=== PATIENT | female | born 1985 | race Caucasian/White ===

== ENCOUNTER 2022-07-22 11:00 | Outpatient (RCR) | payer OTHER, SELFPAY ==
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
--- NOTE | 2022-07-22 11:54 | PTOPDC ---
Assessment and note entered by Barbara Bernabe, PT Evaluation Information Assessment Status Discharge Diagnosis low back pain Onset January 2022 Subjective Information Kiersten reports: back pain number is the same, sharp pains are not as much; getting stronger and more active; R knee and ankle giving her pain and limited her mobility; doing all the exercises at home OK; wants to continue to do the exercises at home, on her own; has appointments for ortho and pain management drs; want to have them look at her R knee next, it is really bothering her; Reported Pain Level Pain Score Self Report Additional Pain Score Comments pain range of 4/10, R and L lumbar pain; staying all the time; continuous dull ache, periodic sharp pains; tender to touch; reported walking tolerance 20 minutes, 5 minutes standing; decrease pain by flexing trunk, heating pad, take muscle relaxer for sleeping; Oswestry self assessment functional score of 46% limitation in activity level; Assessment PT Clinical Summary Kiersten has received 12 PT sessions, for back pain. Compared to the initial evaluation: decreased pain rating at the worst rating from 8/10 to 4/10, with low rating same at 4/10; self assessment score, with Oswestry is 6% worse; reported walking and standing tolerances are the same; improved trunk and hip strength; increased mobility without pain with standing trunk rotation R and L and supine R hip IR and ER and L hip ER motions; education completed for home exercises and posture. The goals were partially achieved. Discharge PT services. She is to continue with her exercises at home. Plan of Care PT Services Indicated No
== END 2022-07-22 15:11 | disposition home or self-care (01) ==
LOC: ANHPT 11:00
PROVIDERS: PCP Nurse Practitioner Family; Visit Provider Nurse Practitioner Family
DX: M54.50 Low back pain, unspecified (principal)
CPT/HCPCS: 97014; 97110; 97112; 97140; 97161; 97530; G0283

== ENCOUNTER 2023-02-17 11:40 | Emergency (ER) | payer OTHER, SELFPAY ==
--- NOTE | ~2023-02-17 | US_ITS ---
EXAMINATION: US pelvic complete w TV DATE: 02/17/2023 16:30 INDICATION: Adnexal mass TECHNIQUE: Multiple transabdominal and endovaginal sonographic images of the pelvis were obtained. COMPARISON: CT dated 02/17/2023 FINDINGS: The uterus measures 7.6 x 3.0 x 4.9 cm. Nabothian cysts at the cervix. The endometrial complex measur es 8 mm in thickness. Linear shadowing IUD seen within the endometrial canal. The left ovary measures 2.6 x 1.8 x 1.8 cm. The right ovary measures 4.8 x 2.9 x 3.3 cm. Within the right ovary is a 3.4 x 2 .9 x 3.1 cm complex cystic lesion proximal half of which demonstrates anechoic fluid with cystitis. S ubtle thin internal septation and more hypoechoic region also with a few thin internal echogenic sept ations. Vascular flow seen on color Doppler both ovaries but no evident internal vascular flow within the hypoechoic region of the complex cystic lesion to suggest vascularized soft tissue. There is a m inimal amount of likely physiologic free fluid in the pelvis. IMPRESSION: 1. 3.4 cm complex cystic lesion in the right ovary without evident internal flow on color Doppler. Ap pearance favors a hemorrhagic cyst and would recommend 6-12 week follow-up pelvic ultrasound to docum ent resolution. 2. IUD in expected position within the endometrial canal. Reviewed, dictated and finalized at location A. IMPRESSION: 1. 3.4 cm complex cystic lesion in the right ovary without evident internal joseph w on color Doppler. Appearance favors a hemorrhagic cyst and would recommend 6- 12 week follow-up pelvic ultrasound to document resolution. 2. IUD in expected position within the endometrial canal.
--- NOTE | ~2023-02-17 | CT_ITS ---
EXAMINATION: CT abdomen pelvis wo con DATE: 02/17/2023 15:36 INDICATION: Flank pain. Nausea and vomiting. TECHNIQUE: Computed tomography (CT) of the abdomen and pelvis was performed without intravenous contr ast. The dose-length product was 1338.11 mGy-cm. Automated exposure control and iterative reconstruct ion technique were employed. COMPARISON: 07/24/2016 FINDINGS: Heart size normal. No significant pleural or pericardial effusion. There are small nonobstr ucting bilateral renal stones measuring 3 mm or less. No hydronephrosis. No ureteral stones. Bladder is decompressed. There is an IUD in the uterus. The liver, spleen, pancreas, adrenal glands are unremarkable. Small fat-containing umbilical hernia. No abnormal there is a small low-density 3.9 cm right ovarian mass, likely complicated cysts. Recomme nd correlation with ultrasound. IMPRESSION: 1. Intermediate density 3.9 cm right ovarian mass. Consider correlation with pelvic ultrasound. 2: Nonobstructing bilateral nephrolithiasis. Reviewed, dictated and finalized at location B. IMPRESSION: 1. Intermediate density 3.9 cm right ovarian mass. Consider correlation with pe lvic ultrasound. 2: Nonobstructing bilateral nephrolithiasis.
[2023-02-17 12:14] VITALS: BP 152/99; PULSE 103; RESP 18; TEMP 36.4; O2SAT 97
[2023-02-17 12:57] LABS: Basophils Absolute Auto 0.1 K/mm3 (0.0-0.1); Basophils Percent Auto 0.5 % (0.2-1.2); Eosinophils Absolute Auto 0.4 K/mm3 (0-0.3); Eosinophils Percent Auto 2.2 % (0-4.4); Hematocrit 48.5 % (37.0-47.0); Hemoglobin 16.2 g/dL (12.0-15.0); Immature Granulocyte Percent A 0.6 % (0-0.5); Lymphocytes Absolute Auto 4.02 K/mm3 (0.9-3.2); Lymphocytes Percent Auto 25.3 % (18.3-44.2); Mean Corpuscular HGB Conc 33.4 g/dl (32-36); Mean Corpuscular Hemoglobin 30.6 pg (26-34); Mean Corpuscular Volume 91.5 fl (80-100); Mean Platelet Volume 9.3 fl (7.4-10.4); Monocytes Absolute Auto 0.7 K/mm3 (0.1-0.6); Monocytes Percent Auto 4.2 % (2.6-8.5); Neutrophils Absolute Auto 10.6 K/mm3 (1.3-6.7); Neutrophils Percent Auto 67.2 % (45.5-73.1); Platelet Count Result 320 k/mm3 (150-375); White Blood Count 15.9 K/mm3 (4.5-10.0)
[2023-02-17 13:11] LABS: Alanine Aminotransferase 24 U/L (6-35); Albumin Level 4.7 g/dL (3.5-5.1); Alkaline Phosphatase 63 U/L (38-126); Anion Gap 9 mmol/L (8-16); Aspartate Amino Transferase 23 U/L (14-36); Bilirubin,Total 0.4 mg/dL (0.2-1.3); Blood Urea Nitrogen 13 mg/dL (7-17); Calcium 9.6 mg/dL (8.4-10.2); Carbon Dioxide 25 mmol/L (22-30); Chloride 106 mmol/L (98-107); Estimated CRCL calculation 113 ml/min; Estimated Glomerular Filt Rate > 60; Glucose 100 mg/dL (65-110); Lipase 913 U/L (23-300); Potassium 4.2 mmol/L (3.4-5.0); Sodium 140 mmol/L (137-145)
[2023-02-17 13:15] LABS: Appearance Urine Cloudy (Clear); Bacteria Urine Rare /hpf; Bilirubin Urine Negative (Negative); Color Urine Yellow (Yellow); Glucose Urine UA Negative (Negative); Ketones Urine Negative (Negative); Leukocyte Esterase Ur Negative LEU/UL (Negative); Nitrate Urine Negative (Negative); Non Pathogenic Casts 0-2; Protein Urine Negative (Negative); Specific Grav Ur 1.019 (1.001-1.035); Squamous Epithelial Cell Urine Occasional /hpf (Few); Urobilinogen Urine 0.2 mg/dL (<2.0); WBC Urine 0-5 /hpf
[2023-02-17 13:30] LABS: Add Urine Microscopic? YES
[2023-02-17 16:01] VITALS: BP 133/80; O2SAT 98
[2023-02-17] MEDS: SODIUM CHLORIDE 0.9% IV 1,000 ML 999 ML IV CONT (16:52)
[2023-02-17] MEDS: MORPHINE SULFATE (*CRX) 4 MG/ML INJ IV PUSH (16:52)
[2023-02-17] MEDS: ONDANSETRON INJ 4 MG/2 ML VIAL IV PUSH (16:52)
--- NOTE | 2023-02-17 17:38 | ED.GENADULT ---
HPI - General Adult General Chief complaint: Abdominal Pain Stated complaint: abd/ back pain Time Seen by Provider: 02/17/23 14:51 History of Present Illness HPI narrative: Patient is a 38-year-old female who presents ER with abdominal pain. Had some epigastric discomfort yesterday but now has some pain in her right lower quadrant that radiates to her low back. Has history of kidney stones and is concerned she may be passing 1. She has some nausea when she eats but no pain with eating or drinking. No fevers chills or sweats. No chest pain or chest pressure. Cannot describe any alleviating factors. Related Data Allergies Allergy/AdvReac Type Severity Reaction Status Date / Time fluoxetine Allergy Unknown Verified 10/04/15 08:56 lorazepam Allergy Unknown Verified 10/04/15 08:55 vilazodone Allergy Unknown Verified 10/04/15 08:56 No Known Allergies Allergy Verified 07/24/16 06:43 [facility] Past Medical History Medical History (Updated 02/17/23 @ 19:10 by Tacos Burkett MD) Carpal tunnel syndrome Fibromyalgia GERD (gastroesophageal reflux disease) Kidney stones Surgical History Surgical History (Updated 02/17/23 @ 19:10 by Tacos Burkett MD) History of section Family History Family History (Updated 10/04/15 @ 09:00 by DOCTOR UNKNOWN) Father Hypertension Other Family history of malignant neoplasm of breast Social History Social History Smoking status: Current every day smoker Alcohol intake: never Exam Narrative: GENERAL: Well-appearing, well-nourished, and in no acute distress. HEAD: Normocephalic, atraumatic. ENT: Mucous membranes moist. NECK: Supple. CHEST: Clear to auscultation. No respiratory distress. HEART: Regular rate and rhythm. Normal peripheral pulses. ABDOMEN: Soft, mild right lower quadrant discomfort without guarding, nondistended. Back: No reproducible midline or paraspinal muscular tenderness of the T/L-spine. EXTREMITIES: Normal range of motion. No edema. SKIN: Warm, dry, no rash. NEURO: Alert and oriented x3. PSYCH: Normal mood and affect. Course Course Emergency Course: Patient with nonspecific elevation white blood cell count. Lipase also elevated but patient has no epigastric tenderness or pain. She had no discomfort with eating or drinking just some nausea. CT did not show any pancreatitis. Patient did have some blood in her urine. Possible she could have passed a kidney stone but it is felt patient's discomfort is most likely related to the ovarian cyst in the right adnexa that there may have been some rupture. She needs to follow-up with gynecology and she is verbalized understanding of this. Vital Signs Vital signs: Vital Signs Temperature 97.6 F 02/17/23 12:14 Pulse Rate 103 H 02/17/23 12:14 Respiratory Rate 18 02/17/23 12:14 Blood Pressure 152/99 H 02/17/23 12:14 Pulse Oximetry 97 02/17/23 12:14 Oxygen Delivery Room Air 02/17/23 12:14 Temperature 97.6 F 02/17/23 12:14 Pulse Rate 103 H 02/17/23 12:14 Respiratory Rate 18 02/17/23 12:14 Blood Pressure 133/80 02/17/23 16:01 Pulse Oximetry 98 02/17/23 16:01 Oxygen Delivery Room Air 02/17/23 12:14 Medical Decision Making Vital Signs Vital Signs: Vital Signs Temperature 97.6 F 02/17/23 12:14 Pulse Rate 103 H 02/17/23 12:14 Respiratory Rate 18 02/17/23 12:14 Blood Pressure 152/99 H 02/17/23 12:14 Pulse Oximetry 97 02/17/23 12:14 Oxygen Delivery Room Air 02/17/23 12:14 Temperature 97.6 F 02/17/23 12:14 Pulse Rate 103 H 02/17/23 12:14 Respiratory Rate 18 02/17/23 12:14 Blood Pressure 133/80 02/17/23 16:01 Pulse Oximetry 98 02/17/23 16:01 Oxygen Delivery Room Air 02/17/23 12:14 Lab Data 02/17/23 12:30 02/17/23 12:30 Labs: Lab Results 02/17/23 02/17/23 Range/Units 12:30 12:52 WBC 15.9 H (4.5-10.0) K/mm3 RBC 5.30 (4.2-5.4) M/mm3 Hgb 16.2 H (
== END 2023-02-17 17:39 | disposition home or self-care (01) ==
PROVIDERS: Emergency Provider Emergency Medicine; PCP Nurse Practitioner Family
DX: N83.201 Unspecified ovarian cyst, right side (principal); Z97.5 Presence of (intrauterine) contraceptive device; M79.7 Fibromyalgia; K21.9 Gastro-esophageal reflux disease without esophagitis; Z87.442 Personal history of urinary calculi
CPT/HCPCS: 36415; 74176; 76830; 76856; 80053; 81001; 81025; 83690; 85025; 96361; 96374; 96375; 99284; J2270; J2405; J7030

== ENCOUNTER 2023-03-18 01:15 | Day surgery (SDC) | payer OTHER, SELFPAY ==
[2023-03-07 15:11] VITALS: BMI 38.2
[2023-03-18 10:05] VITALS: BP 124/86; PULSE 86; RESP 18; TEMP 36.2; O2SAT 99; BMI 38.6
[2023-03-18] MEDS: LACTATED RINGERS 1,000 ML 150 ML IV CONT (10:09)
--- NOTE | 2023-03-18 10:25 | P.PNAN_ITS ---
Anes - Initial Pre Proc Eval Procedure: Operation Date: 03/18/23 11:15 Proposed Procedures p Esophagogastroduodenoscopy - Francisco Pickett MD Date/Time: 03/18/23 10:25 Surgeon: Francisco Pickett MD Pre Op Diagnosis: nausea with vomiting Patient Data Age: 38 Gender: F Height: 1.68 m Weight: 108.6 kg Last Vital Signs Temp 97.1 F L 03/18/23 10:05 Pulse 86 03/18/23 10:05 Resp 18 03/18/23 10:05 BP 124/86 03/18/23 10:05 Pulse Ox 99 03/18/23 10:05 O2 Del Method Room Air 03/18/23 10:05 Allergies Allergy/AdvReac Type Severity Reaction Status Date / Time lorazepam Allergy Unknown Itching Verified 03/18/23 10:03 adhesive tape Allergy Rash Verified 03/18/23 10:03 Home Medications Medication Instructions Recorded Confirmed Type duloxetine 20 mg capsule,delayed 20 mg PO BID 03/03/23 03/18/23 History release sprinkle omeprazole 40 mg capsule,delayed 40 mg PO DAILY 03/03/23 03/18/23 History release pregabalin 225 mg capsule 225 mg PO BID 03/03/23 03/18/23 History tizanidine 4 mg capsule 4 mg PO QHS PRN muscle spasms 03/03/23 03/18/23 History venlafaxine 75 mg tablet 75 mg PO DAILY 03/03/23 03/18/23 History Patient hx anesthesia problems: none Family hx anesthesia problems: none Results Review: All pre-operative results and documents have been reviewed as part of the pre- operative evaluation. [facility] Past Medical History Medical History (Updated 03/05/23 @ 20:30 by Nguyen Palomo APN-C) Carpal tunnel syndrome Elevated lipase Epigastric pain Fibromyalgia GERD (gastroesophageal reflux disease) Kidney stones Nausea and vomiting Tobacco abuse Surgical History Surgical History History of section Family History Family History (Updated 10/04/15 @ 09:00 by DOCTOR UNKNOWN) Father Hypertension Other Family history of malignant neoplasm of breast Social History Social History Smoking status: Current every day smoker Alcohol intake: never Substance use: current Substance use type: marijuana Last use: 03/01/2023 Anes - Eval Final PreProcedure Day of Procedure 03/18/23 10:25 Patient weight: obese Heart: regular rate and rhythm Lungs: clear to auscultation Airway: Mallampati scale class II Neurological: alert and oriented Last oral intake: >/= 8 hours ASA classification: III Emergent: no Anesthetic plan: proceed Anesthesia type and monitoring: general GIVS and standard monitoring Results Review: All pre-operative results and documents have been reviewed as part of the pre- operative evaluation. Informed Consent: The patient's anesthetic plan and its attendant risks and benefits were discussed with the patient/family/POA. Questions were solicited and answers provided to the satisfaction of the patient/family/POA.
--- NOTE | 2023-03-18 10:31 | WPDHPUPDATE1 ---
History and Physical Update Update Date/Time: 03/18/23 10:31 History and Physical has been reviewed, including an updated exam of the patient. There are NO changes in the patient's condition. Risks, benefits, and alternatives have been discussed and questions answered. Patient agrees to proceed with procedure.
[2023-03-18 10:47] VITALS: BP 108/70; PULSE 76; RESP 23; O2SAT 98
[2023-03-18 10:57] VITALS: BP 120/78; PULSE 63; RESP 18; O2SAT 99
[2023-03-18 11:07] VITALS: BP 131/87; PULSE 66; RESP 22; O2SAT 100
== END 2023-03-18 11:16 | disposition home or self-care (01) ==
PROVIDERS: PCP Family Medicine; Visit Provider Internal Medicine Gastroenterology
PROC: 0DJ08ZZ Inspection of Upper Intestinal Tract, Via Natural or Artificial Opening Endoscopic (ICD-10-PCS; CPT 43235; principal; 2023-03-18 11:15)
DX: R11.2 Nausea with vomiting, unspecified (principal); R10.13 Epigastric pain; K21.9 Gastro-esophageal reflux disease without esophagitis; M79.7 Fibromyalgia; F12.90 Cannabis use, unspecified, uncomplicated; E66.9 Obesity, unspecified; Z68.38 Body mass index [BMI] 38.0-38.9, adult
CPT/HCPCS: 43239; 88305; J2704; J7120

== ENCOUNTER 2023-03-28 07:28 | Outpatient (CLI) | payer OTHER, SELFPAY ==
--- NOTE | ~2023-03-28 | NM_ITS ---
EXAM: NM gastric emptying study DATE: 03/28/2023 15:19 INDICATION: Epigastric pain, nausea and vomiting TECHNIQUE: A gastric emptying study was performed using the methodology of Gladys JOSE, et al. J Nucl Med 2007; 48:568-572. The patient was given a meal consisting of 2 scrambled eggs labeled with 1.029 mCi Tc-99m sulfur colloid, 2 slices of toast, two packages of jam, and approximately 120 mL of water . Simultaneous anterior and posterior 1-min images of the abdomen were obtained with the patient supi ne at multiple time points over a total period of 4 hours. The geometric mean of anterior and posteri or views was determined, and the percentage retention was calculated for each time point. COMPARISON: None. FINDINGS: Gastric retention of the radiotracer-labeled meal was 61%, 37%, and 16% at the 1-hour, 2-hour, and 4- hour time points, respectively. With this technique, apparent rapid gastric emptying is suggested by <30% gastric retention at 1 hour. Delayed gastric emptying is defined by gastric retention of >90% at 1 hour, >60% retention at 2 hours, or >10% retention at 4 hours. IMPRESSION: 1. Delayed gastric emptying. Reviewed, dictated and finalized at location A.
== END 2023-03-28 07:29 | disposition home or self-care (01) ==
PROVIDERS: PCP Family Medicine; Visit Provider Internal Medicine Gastroenterology
DX: K30 Functional dyspepsia (principal)
CPT/HCPCS: 78264; A9541

== ENCOUNTER 2023-05-29 13:42 | Emergency (ER) | payer OTHER, SELFPAY ==
--- NOTE | ~2023-05-29 | XR_ITS ---
EXAMINATION: XR foot RT min 3V DATE: 05/29/2023 14:01 INDICATION: Pain and bruising at the right fifth toe weeks post injury TECHNIQUE: Dorsoplantar, two oblique and lateral views of the right foot were obtained. COMPARISON: None. FINDINGS: Nondisplaced extra articular fracture at the proximal metaphysis at the base of the right fifth proxi mal phalanx. Fracture line appears relatively smooth consistent with the provided subacute chronicity . No periosteal reaction or other productive changes of healing yet apparent. Alignment remains essen tially anatomic. There is a lateral plate and screw fixation at the calcaneus which could relate eith er chronic fracture or osteotomy. No other fractures identified. 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 IMPRESSION: 1. Nondisplaced extra articular fracture at the base of the fifth proximal phalanx. Reviewed, dictated and finalized at location A. IMPRESSION: 1. Nondisplaced extra articular fracture at the base of the fifth proximal phal anx.
--- NOTE | 2023-05-29 13:47 | ED.LOWEXIN ---
HPI - Extremity Injury (Lower) General Chief Complaint: Extremity Injury, Lower Stated Complaint: R TOE INJURY Time Seen by Provider: 05/29/23 13:50 Source: patient Mode of arrival: ambulatory Limitations: no limitations History of Present Illness HPI Narrative: Daly is a 38-year-old female patient presenting to the clinic today with complaints of a right 5th toe injury. She reports she stubbed her toe approximately 2 weeks ago. She has some old bruising noted to the distal midfoot. She reports some pain to the for 2nd, 3rd, 4th, and 5th toes with flexion and extension. Also reports that the pain is radiating down the lateral aspect of her right foot. History metal heel and she suffered from a calcaneal break Related Data Home Medications Medication Instructions Recorded Confirmed duloxetine 20 mg capsule,delayed 20 mg PO BID 03/03/23 05/29/23 release sprinkle omeprazole 40 mg capsule,delayed 40 mg PO DAILY 03/03/23 05/29/23 release pregabalin 225 mg capsule 225 mg PO BID 03/03/23 05/29/23 tizanidine 4 mg capsule 4 mg PO QHS PRN muscle spasms 03/03/23 05/29/23 venlafaxine 75 mg tablet 75 mg PO DAILY 03/03/23 05/29/23 naltrexone 4.5 mg capsule 4.5 mg PO DAILY 05/29/23 05/29/23 Allergies Allergy/AdvReac Type Severity Reaction Status Date / Time lorazepam Allergy Unknown Itching Verified 05/29/23 13:49 adhesive tape Allergy Rash Verified 05/29/23 13:49 Review of Systems Review of Systems: Pertinent positives per HPI. Patient denies any fever, chills, rash, headache, visual changes, dizziness, cough, runny nose, sore throat, shortness of breath, chest pain, palpitations, nausea, vomiting, diarrhea, constipation, abdominal pain, or any urinary issues. [facility] Past Medical History Medical History Carpal tunnel syndrome Elevated lipase Epigastric pain Fibromyalgia GERD (gastroesophageal reflux disease) Kidney stones Nausea and vomiting Tobacco abuse Surgical History Surgical History History of section Family History Family History Father Hypertension Other Family history of malignant neoplasm of breast Social History Social History Smoking status: Current every day smoker Alcohol intake: never Substance use: current Substance use type: marijuana Last use: 03/01/2023 Comments At the time of my signature, I reviewed and agree with the nursing past medical, surgical, social, and family history. There is no relevant family history pertinent to the patient complaint. Exam Narrative: General: Well-developed, well nourished, in no apparent distress Head: Normocephalic, atraumatic. Cardio: Regular rate and rhythm, s1 and s2 normal, no murmur appreciated. Resp: Clear to auscultation bilaterally, no rhonchi, rales, wheezing or rubs. Musculoskeletal: No deformity, tender to palpation over the base of the 5th toe, pain with flexion and extension of the 2nd, 3rd, 4th, and 5th toes, has old bruising noted to the dorsal distal midfoot, unable to flex or extend the 5th toe, muscle strength strong and equal, peripheral pulse strong, no edema, no cyanosis, normal gait and station Course Course Emergency Course: Portions of this record may have been created with voice recognition software. Level of Care: Express Care Visit Vital Signs Vital signs: Vital signs reviewed MDM - Extremity Injury (Lower) MDM Narrative Medical decision making narrative: At the time of visit patient is resting on the exam table. X-ray of the right foot was performed and shows a nondisplaced fracture of the right 5th toe. Will jama-tape the 5th toe to the 4th toe and give the patient postop shoe. Supportive measures were discussed with the patient she voiced unders
[2023-05-29 13:51] VITALS: BP 143/98; PULSE 99; RESP 16; TEMP 36.6; O2SAT 100
== END 2023-05-29 14:40 | disposition home or self-care (01) ==
PROVIDERS: Emergency Provider Nurse Practitioner Family; PCP Family Medicine
DX: S92.514A Nondisplaced fracture of proximal phalanx of right lesser toe(s), initial encounter for closed fracture (principal); X58.XXXA Exposure to other specified factors, initial encounter; M79.7 Fibromyalgia; K21.9 Gastro-esophageal reflux disease without esophagitis; F17.200 Nicotine dependence, unspecified, uncomplicated; F12.90 Cannabis use, unspecified, uncomplicated
CPT/HCPCS: 73630; 99214; G0463

== ENCOUNTER 2025-06-15 14:00 | Outpatient (CLI) | payer OTHER, SELFPAY ==
--- NOTE | ~2025-06-15 | MM_ITS ---
EXAMINATION: MM screening rica BI w emperatriz HISTORY: Screening TECHNIQUE: Craniocaudal and mediolateral oblique 3-D tomosynthesis images were obtained and synthetic 2-D images were generated. CAD analysis was submitted and interpreted. COMPARISON: No prior mammogram is available for comparison at this institution. BREAST PARENCHYMAL COMPOSITION: Not Dense: The breasts are almost entirely fatty. FINDINGS: There is no evidence of suspicious mass, calcification, or architectural distortion to suggest malignancy in either breast. [There has been no significant interval change. IMPRESSION: 1. No mammographic evidence of malignancy. Recommend routine screening mammography in one year. BI-RADS Category 1: Negative Reviewed, dictated, and finalized at Location [facility]. Reviewed, dictated and finalized at location Q. IMPRESSION: 1. No mammographic evidence of malignancy. Recommend routine screening mammogra phy in one year. BI-RADS Category 1: Negative
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
== END 2025-06-15 14:01 | disposition home or self-care (01) ==
LOC: CHSIMG 14:08
PROVIDERS: PCP Nurse Practitioner Family; Visit Provider Obstetrics & Gynecology
DX: Z12.31 Encounter for screening mammogram for malignant neoplasm of breast (principal)
CPT/HCPCS: 77063; 77067